=== PATIENT | male | born 1970 | race Caucasian/White ===

== ENCOUNTER → 2023-07-30 08:13 | Outpatient (REF) | payer BC, SELFPAY | LOC: HWRAD 08:13 | PROVIDERS: ATTENDING PHYSICIAN Nurse Practitioner Primary Care | DX: C19 Malignant neoplasm of rectosigmoid junction (principal) | CPT/HCPCS: 71260; 74177; Q9967 ==

== ENCOUNTER → 2023-08-15 09:58 | Outpatient (REF) | payer BC, SELFPAY ==
[2023-08-15 10:10] VITALS: BP 139/88; BP_SYST 65
[2023-08-15 11:20] VITALS: BP 140/77; BP_SYST 61
[2023-08-15 11:25] VITALS: BP 140/77
== END ==
LOC: RADI 09:58
PROVIDERS: ATTENDING PHYSICIAN Internal Medicine Hematology & Oncology; FAMILY PHYSICIAN Nurse Practitioner Primary Care
DX: Z45.2 Encounter for adjustment and management of vascular access device (principal); C19 Malignant neoplasm of rectosigmoid junction; Z92.21 Personal history of antineoplastic chemotherapy
CPT/HCPCS: 36590; 77001

== ENCOUNTER → 2024-07-29 06:47 | Outpatient (REF) | payer BC, SELFPAY | LOC: RAD 06:47 | PROVIDERS: ATTENDING PHYSICIAN Nurse Practitioner Primary Care; FAMILY PHYSICIAN Nurse Practitioner Family | DX: C19 Malignant neoplasm of rectosigmoid junction (principal) | CPT/HCPCS: 71260; 74177; Q9967 ==